=== PATIENT | male | born 2000 | race Caucasian/White ===

== ENCOUNTER → 2024-04-18 10:13 | Outpatient (CLI) | payer OTHER, MEDICAID, SELFPAY ==
[2024-04-18 22:45] LABS: Urine N gonorrhoeae NOT DETECTED
[2024-04-18 22:53] LABS: Urine Chlamydia NOT DETECTED
== END ==
PROVIDERS: PCP Physician Assistant Medical; Visit Provider Physician Assistant Medical
DX: Z20.2 Contact with and (suspected) exposure to infections with a predominantly sexual mode of transmission (principal)
CPT/HCPCS: 86592; 86803; 87340; 87389; 87491; 87591